=== PATIENT | female | born 1990 | race African-American/Black ===

== ENCOUNTER 2016-05-26 14:37 | Emergency (ER) | payer MEDICAID, OTHER ==
[2016-05-26 14:42] VITALS: BP 136/71
--- NOTE | 2016-05-26 15:25 | ED ---
Throat Pain/Nasal Congestion - HPI Summary HPI Summary: Pt here w/ URI sx x "a few days". Started as head congestion - she now has a ST , dry cough, PND. Denies fever, chills, N/V/D, otalgia, rash. Sick contacts - roommate. Pt smokes and is exposed to 2nd hand smoke. She has been taking ibuprofen for relief. Has to work today. - History of Current Complaint Chief Complaint: EDUpperRespComplaint Time Seen by Provider: 05/26/16 14:58 Hx Obtained From: Patient - Allergies/Home Medications Allergies/Adverse Reactions: Allergies Allergy/AdvReac Type Severity Reaction Status Date / Time No Known Allergies Allergy Verified 05/26/16 14:39 PMH/Surg Hx/FS Hx/Imm Hx Previously Healthy: Yes Endocrine/Hematology History: Denies: Hx Diabetes, Hx Thyroid Disease Cardiovascular History: Reports: Hx Cardiomegaly, Hx Hypertension Respiratory History: Denies: Hx Asthma, Hx Chronic Obstructive Pulmonary Disease (COPD) GI History: Denies: Hx Ulcer Infectious Disease History: No Infectious Disease History: Denies: Hx Clostridium Difficile, Hx Hepatitis, Hx Human Immunodeficiency Virus (HIV), Hx of Known/Suspected MRSA, Hx Shingles, Hx Tuberculosis, Hx Known/ Suspected VRE, Hx Known/Suspected VRSA, History Other Infectious Disease, Traveled Outside the [place] in Last 30 Days - Family History Known Family History: Positive: None, Other - mother and MGM "crippled up with arthritis, could hardly walk" - Social History Occupation: Employed Part-time Lives: With Family - roommate Alcohol Use: Occasionally Substance Use Type: Reports: Marijuana Substance Use Comment - Amount & Last Used: OCCASIONALLY Smoking Status (MU): Current Every Day Smoker Type: Cigarettes Amount Used/How Often: 5 PER DAY Review of Systems Negative: Fever, Chills Negative: Drainage, Erythema ENT: Other - see HPI Negative: Chest Pain Positive: Cough - see HPI. Negative: Shortness Of Breath Gastrointestinal: Negative Positive: no symptoms reported Musculoskeletal: Negative Skin: Negative Neurological: Negative Psychological: Normal All Other Systems Reviewed And Are Negative: Yes Physical Exam Triage Information Reviewed: Yes Vital Signs On Initial Exam: Initial Vitals Temp Pulse Resp BP Pulse Ox 98.8 F 79 18 136/71 100 05/26/16 14:39 05/26/16 14:39 05/26/16 14:39 05/26/16 14:39 05/26/16 14:39 Vital Signs Reviewed: Yes Appearance: Positive: Well-Appearing, No Pain Distress, Well-Nourished Skin: Positive: Warm, Dry - no rash Head/Face: Positive: Normal Head/Face Inspection - Sinuses w/ mild TTP Eyes: Positive: Normal, EOMI, Conjunctiva Clear ENT: Positive: Hearing grossly normal, Pharynx normal, Nasal congestion - mucosa w/ erythema and mild edema Lt > Rt, TMs normal. Negative: Nasal drainage , Tonsillar swelling, Tonsillar exudate Neck: Positive: Supple, Nontender, No Lymphadenopathy Respiratory/Lung Sounds: Positive: Clear to Auscultation, Breath Sounds Present. Negative: Rales, Rhonchi, Wheezes Cardiovascular: Positive: Normal, RRR, S1, S2. Negative: Murmur, Rub Abdomen Description: Positive: Nontender, No Organomegaly, Soft Bowel Sounds: Positive: Present Musculoskeletal: Positive: Normal, Strength/ROM Intact Neurological: Positive: Normal, Sensory/Motor Intact, Alert, Oriented to Person Place, Time, CN Intact II-III Psychiatric: Positive: Normal Diagnostics - Vital Signs Vital Signs Temp Pulse Resp BP Pulse Ox 05/26/16 14:39 98.8 F 79 18 136/71 100 - Laboratory Lab Statement: Any lab studies that have been ordered have been reviewed, and results considered in the medical decision making process. EENT Course/Dx - Diagnoses Provider Diagnoses: URI with cough and congestion Discharge - Discharge Plan Condition: Stable Disposition: HOME Patient Education Materials: Upper Respiratory Infection (ED) Forms: *Work Release Referrals: [facility] [Outside] Additional Instructions: Your respiratory infection is most likely viral in nature. This may last for 7- 14 days. There is no specific medication needed to treat this but some therapies may be implemented to aid your symptoms over the course of illness ( see below): Nasal wash (netti pot) & throat gargle 2 x day with 8 ounces of warm water + 1/ 4 teaspoon of salt Drink 60+ ounces of water daily Sleep 8+ hours per night Avoid Dairy and sugar Hot herbal/decaf tea with lemon & honey Chicken broth (preferably organic, free range chicken) Humidifier in house, but especially near bed at night Try a facial steam with or without eucalyptus essential oil Cough drops Vicks vapor rub Consider taking Vitamin D3 5,000iu and Vitamin C 1,000mg every day during illness Follow-up with your PCP if symptoms persist or worsen. You may also return to the ED.
== END 2016-05-26 15:51 | disposition home or self-care (01) ==
LOC: ED 14:37
DX: J06.9 Acute upper respiratory infection, unspecified (principal); R09.81 Nasal congestion; R05 Cough; F17.210 Nicotine dependence, cigarettes, uncomplicated
CPT/HCPCS: 99281

== ENCOUNTER 2016-06-20 08:25 | Emergency (ER) | payer MEDICAID, OTHER ==
[2016-06-20 08:30] VITALS: BP 133/86
--- NOTE | 2016-06-20 16:41 | ED ---
Dima Whitehead Adam, scribed for Nakul Paiz MD on 06/20/16 at 0851 . Upper Extremity Pain - HPI Summary HPI Summary: Pt is a 25 year old female presenting with finger swelling. She states that the index and pinky finger of her right hand have been intermittently swollen and itchy for several days. She has also developed small bumps on the affected fingers. This morning she woke up with the swelling, itchiness, and bumps and decided to come to the ED. She reports a hx of carpal tunnel in her right hand. 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 She denies any rashes on any other parts of her body. PMHx of HTN. - History of Current Complaint Chief Complaint: EDExtremityUpper Stated Complaint: 2 FINGERS SWELLING/PAINFUL Time Seen by Provider: 06/20/16 08:41 Hx Obtained From: Patient Mechanism Of Injury: Unknown Onset/Duration: Started Days Ago, Atraumatic, Still Present Timing: Intermittent Severity Initially: Moderate Severity Currently: Moderate Pain Location: Finger - Right index and pinky Aggravating Factor(s): Nothing Alleviating Factor(s): Nothing Associated Signs & Symptoms: Positive: Swelling, Other - Itchiness, small bumps - Allergies/Home Medications Allergies/Adverse Reactions: Allergies Allergy/AdvReac Type Severity Reaction Status Date / Time No Known Allergies Allergy Verified 06/20/16 08:27 PMH/Surg Hx/FS Hx/Imm Hx Endocrine/Hematology History: Denies: Hx Diabetes, Hx Thyroid Disease Cardiovascular History: Reports: Hx Cardiomegaly, Hx Hypertension Respiratory History: Denies: Hx Asthma, Hx Chronic Obstructive Pulmonary Disease (COPD) GI History: Denies: Hx Ulcer Infectious Disease History: No Infectious Disease History: Denies: Hx Clostridium Difficile, Hx Hepatitis, Hx Human Immunodeficiency Virus (HIV), Hx of Known/Suspected MRSA, Hx Shingles, Hx Tuberculosis, Hx Known/ Suspected VRE, Hx Known/Suspected VRSA, History Other Infectious Disease, Traveled Outside the [place] in Last 30 Days - Family History Known Family History: Positive: Other - Mother and MGM "crippled up with arthritis, could hardly walk" - Social History Occupation: Employed Full-time Lives: Alone Alcohol Use: Occasionally Hx Substance Use: Yes Substance Use Type: Reports: Marijuana Substance Use Comment - Amount & Last Used: OCCASIONALLY Hx Tobacco Use: Yes Smoking Status (MU): Current Every Day Smoker Type: Cigarettes Amount Used/How Often: 5 PER DAY Review of Systems Negative: Fever, Chills Negative: Erythema Negative: Sore Throat Negative: Chest Pain Negative: Shortness Of Breath, Cough Negative: Abdominal Pain, Vomiting, Nausea Negative: dysuria, hematuria Positive: Edema - Right index and pinky finger. Negative: Myalgia Positive: Other - Itchiness and small bumps on right index and pinky finger. Negative: Rash Neurological: Other - Negative dizziness All Other Systems Reviewed And Are Negative: Yes Physical Exam - Summary Physical Exam Summary: Constitutional: Well-developed, Well-nourished, Alert. (-) Distressed Skin: Warm, Dry HENT: Normocephalic; Atraumatic Eyes: Conjunctiva normal Neck: Musculoskeletal ROM normal neck. (-) JVD, (-) Stridor, (-) Tracheal deviation Cardio: Rhythm regular, rate normal, Heart sounds normal; Intact distal pulses; The pedal pulses are 2+ and symmetric. Radial pulses are 2+ and symmetric. (-) Murmur Pulmonary/Chest wall: Effort normal. (-) Respiratory distress, (-) Wheezes, (-) Rales Abd: Soft, (-) Tenderness, (-) Distension, (-) Guarding, (-) Rebound Musculoskeletal: Edema and small bumps on index and pinky fingers of right hand. Lymph: (-) Cervical adenopathy Neuro: Alert, Oriented x3 Psych: Mood and affect Normal Triage Information Reviewed: Yes Vital Signs On Initial Exam: Initial Vitals Temp Pulse Resp BP Pulse Ox 97.6 F 86 16 133/86 100 06/20/16 08:27 06/20/16 08:27 06/20/16 08:27 06/20/16 08:27 06/20/16 08:27 Vital Signs Reviewed: Yes Diagnostics - Vital Signs Vital Signs Temp Pulse Resp BP Pulse Ox 06/20/16 08:27 97.6 F 86 16 133/86 100 - Laboratory Lab Statement: Any lab studies that have been ordered have been reviewed, and results considered in the medical decision making process. Course/Dx - Diagnoses Provider Diagnoses: Eczema Discharge - Discharge Plan Condition: Stable Disposition: HOME Prescriptions: Hydrocortisone 1% CREAM* [Hytone Cream 1%*] 1 applic TOPICAL TID #1 tube Patient Education Materials: Eczema (ED) Forms: *Work Release Referrals: Joelle rCowell MD [Medical Doctor] - Additional Instructions: Follow up with Dr. Crowell in 2 days. The documentation as recorded by the Dima caruso Adam accurately reflects the service I personally performed and the decisions made by me, Nakul Paiz MD.
== END 2016-06-20 10:00 | disposition home or self-care (01) ==
LOC: ED 08:25
DX: L30.9 Dermatitis, unspecified (principal); M79.89 Other specified soft tissue disorders; F17.210 Nicotine dependence, cigarettes, uncomplicated
CPT/HCPCS: 99281

== ENCOUNTER 2016-07-21 12:34 | Emergency (ER) | payer OTHER ==
[2016-07-21 13:06] LABS: Urine Bilirubin Negative (Negative); Urine Glucose Negative (Negative); Urine Nitrite Negative (Negative)
[2016-07-21] MEDS ORDERED: Ondansetron INJ* 2 MG/ML VIAL IV ONE (13:19)
[2016-07-21 13:45] LABS: Hematocrit 41 % (35-47); Hemoglobin 13.3 g/dl (12.0-16.0); Mean Corpuscular HGB Conc 32 g/dl (31-36); Mean Corpuscular Hemoglobin 28 pg (27-31); Mean Corpuscular Volume 87 fL (80-97); Mean Platelet Volume 10 um3 (7.4-10.4); Red Blood Count 4.78 10^6/ul (4.0-5.4); Red Cell Distribution Width 15 % (10.5-15)
[2016-07-21] MEDS: NS 0.9% 1000 ML* 2,000 ML IV ONE ×2 (13:49→13:51)
[2016-07-21 14:00] LABS: ALT 14 U/L (7-52); AST 25 U/L (13-39); Albumin 4.2 g/dL (3.2-5.2); Alkaline Phosphatase 54 U/L (34-104); Anion Gap 6 mmol/L (2-11); BUN/Creatinine Ratio 9.1 (8-20); Blood Urea Nitrogen 8 mg/dL (6-24); CO2 Carbon Dioxide 25 mmol/L (22-32); Calcium 9.6 mg/dL (8.6-10.3); Chloride 103 mmol/L (101-111); EGFR African American 99.1 (>60); EGFR Non-African American 77.1 (>60); Globulin 3.6 g/dL (2-4); Glucose 88 mg/dL (70-100); Lipase 16 U/L (11.0-82.0); Potassium 3.4 mmol/L (3.5-5.0); Sodium 134 mmol/L (133-145); Total Protein 7.8 g/dL (6.4-8.9)
[2016-07-21] MEDS ORDERED: Iohexol 300* (CONTRAST) 10 ML SDV IV ONE (14:24)
--- NOTE | 2016-07-21 15:15 | RAD ---
INDICATION: 3 days diffuse abdominal pain. COMPARISON: June 04, 2013 CT chest. TECHNIQUE: Multidetector CT images were obtained from the lung bases to the ischial tuberosities with 100 mL Omnipaque 300 IV and oral contrast. Multiplanar reformation. REPORT: Unremarkable visualized inferior thorax. Unremarkable liver. Largely decompressed gallbladder limiting assessment without gross abnormality. Unremarkable pancreas and spleen. Negative for CT abnormality of the upper GI, small bowel, infra cecal appendix, colon. Enteric contrast extends to the splenic flexure. Physiologic small volume of free pelvic fluid. Negative for free air or hernias. Normal adrenal glands. Unremarkable kidneys with symmetric nephrograms and pyelograms. No abnormality along the course of the nondilated ureters. Unremarkable urinary bladder as well as the anteverted uterus and RIGHT adnexal region. 1.5 cm maximum dimension centrally hypodense LEFT ovarian lesion with some in were directed margins most consistent with an involuting follicular or hemorrhagic cyst. Negative for lymphadenopathy. Unremarkable dominant retroperitoneal vasculature. Negative for suspicious osseous lesions. IMPRESSION: 1. Normal appendix documented. 2. 1.5 cm LEFT ovarian lesion most consistent with an involuting follicular or hemorrhagic cyst given presence of some inward directed margins. 3. Physiologic small volume of free pelvic fluid.
[2016-07-21] MEDS ORDERED: Al Hydrox/Mg Hydrox/Simet LIQ* 30 ML UDC PO ONE (16:50)
[2016-07-21] MEDS ORDERED: Lidocaine 2% VISCOUS* 15 ML UDC PO ONE (16:50)
--- NOTE | 2016-07-21 17:27 | RAD ---
Indication: Epigastric upper abdominal pain. Comparison: CT abdomen of the same date. Technique: RIGHT upper quadrant ultrasound. Report: Appropriate direction flow documented in the portal and hepatic veins. 15.4 cm cephalocaudal liver is normal in echotexture and without evidence for focal lesions or intrahepatic biliary dilatation. Partially distended gallbladder with normal 2.2 mm wall. No visualized biliary sludge, cholelithiasis, or pericholecystic fluid. Negative for sonographic Lomax's sign. 4.3 mm common bile duct. Unremarkable pancreas. Negative for ascites. Unremarkable 11.1 cm RIGHT kidney. IMPRESSION: Negative RIGHT upper quadrant ultrasound.
[2016-07-21] MEDS ORDERED: Ondansetron ODT TAB* 4 MG PO ONE (18:52)
--- NOTE | 2016-07-21 18:55 | ED ---
Alexi Whitehead Erika, scribed for Asif Enriquez MD on 07/21/16 at 1352 . Abdominal Pain/Female - HPI Summary HPI Summary: Patient is a 25-year-old female presenting to the ED with a CC of diffuse abdominal pain. Patient reports she had left-sided abdominal pain intermittently for about a month. Today, pain worsened and became diffuse, so patient came to the ED. She currently rates pain a 7/10. Pain is somewhat aggravated by eating. Patient reports she was nauseated this morning, and has had some diarrhea. She also reports she has been lightheaded today. She denies blood in stool, burning with urination, and abnormal vaginal discharge. Pt states she is not concerned about an STI. LNMP 07/01/2016. Patient denies Hx abdominal surgeries. - History of Current Complaint Chief Complaint: EDAbdPain Stated Complaint: ABD PAIN, AND LUNG PAIN Time Seen by Provider: 07/21/16 12:49 Hx Obtained From: Patient Hx Last Menstrual Period: 04/01/15 Onset/Duration: Gradual Onset, Lasting Weeks - 1 month, Worse Since - today Timing: Intermittent Episode Lasting - minutes/hours Severity Initially: Mild Severity Currently: Moderate Pain Intensity: 8 Pain Scale Used: 0-10 Numeric Location: Diffuse Aggravating Factor(s): Food Alleviating Factor(s): Nothing Associated Signs and Symptoms: Positive: Nausea, Diarrhea, Other: - lightheadedness. Negative: Blood in Stool, Urinary Symptoms, Vaginal Discharge Allergies/Adverse Reactions: Allergies Allergy/AdvReac Type Severity Reaction Status Date / Time No Known Allergies Allergy Verified 06/20/16 08:27 PMH/Surg Hx/FS Hx/Imm Hx Endocrine/Hematology History: Denies: Hx Diabetes, Hx Thyroid Disease Cardiovascular History: Reports: Hx Cardiomegaly, Hx Hypertension Respiratory History: Denies: Hx Asthma, Hx Chronic Obstructive Pulmonary Disease (COPD) GI History: Denies: Hx Ulcer Infectious Disease History: Denies: Hx Clostridium Difficile, Hx Hepatitis, Hx Human Immunodeficiency Virus (HIV), Hx of Known/Suspected MRSA, Hx Shingles, Hx Tuberculosis, Hx Known/ Suspected VRE, Hx Known/Suspected VRSA, History Other Infectious Disease, Traveled Outside the [place] in Last 30 Days - Family History Known Family History: Positive: Other - arthritis - Social History Alcohol Use: Occasionally Hx Substance Use: Yes Substance Use Type: Reports: Marijuana Substance Use Comment - Amount & Last Used: OCCASIONALLY Hx Tobacco Use: Yes Smoking Status (MU): Current Every Day Smoker Type: Cigarettes Amount Used/How Often: 5 PER DAY Review of Systems Positive: Abdominal Pain, Diarrhea, Nausea Negative: burning, discharge Neurological: Other - lightheadedness All Other Systems Reviewed And Are Negative: Yes Physical Exam Triage Information Reviewed: Yes Vital Signs On Initial Exam: Initial Vitals Temp Pulse Resp BP Pulse Ox 97.3 F 80 16 130/79 100 07/21/16 12:38 07/21/16 12:38 07/21/16 12:38 07/21/16 12:38 07/21/16 12:38 Vital Signs Reviewed: Yes Appearance: Positive: Ill-Appearing - Mild, Pain Distress - Mild Skin: Positive: Warm, Skin Color Reflects Adequate Perfusion, Dry Head/Face: Positive: Normal Head/Face Inspection Eyes: Positive: EOMI, MAYA ENT: Positive: Normal ENT inspection, Other - Oral mucosa moist Neck: Positive: Supple, Nontender Respiratory/Lung Sounds: Positive: Clear to Auscultation, Breath Sounds Present Cardiovascular: Positive: RRR Abdomen Description: Positive: Soft, CVA Tenderness (L) - minimal, to percussion , Other: - Diffuse abdominal tenderness Bowel Sounds: Positive: Hypoactive Musculoskeletal: Positive: Normal, Strength/ROM Intact Neurological: Positive: Normal, Sensory/Motor Intact, Alert, Oriented to Person Place, Time Psychiatric: Positive: Affect/Mood Appropriate Diagnostics - Vital Signs Vital Signs Temp Pulse Resp BP Pulse Ox 07/21/16 12:38 97.3 F 80 16 130/79 100 - Laboratory Lab Results: Lab Results 07/21/16 Range/Units 13:00 Urine Color Straw Urine Appearance Clear Urine pH 6.0 (5-9) Ur Specific [place] 1.003 L (1.010-1.030) Urine Protein Negative (Negative) Urine Ketones Negative (Negative) Urine Blood Negative (Negative) Urine Nitrate Negative (Negative) Urine Bilirubin Negative (Negative) Urine Urobilinogen Negative (Negative) Ur Leukocyte Esterase Negative (Negative) Urine Glucose Negative (Negative) Result Diagrams: 07/21/16 13:25 07/21/16 13:25 Lab Statement: Any lab studies that have been ordered have been reviewed, and results considered in the medical decision making process. - CT CT A/P W/ CT Interpretation Completed By: Radiologist - IMPRESSION: 1. Normal appendix documented. 2. 1.5 cm LEFT ovarian lesion most consistent with an involuting follicular or hemorrhagic cyst given presence of some inward directed margins. 3. Physiologic small volume of free pelvic fluid. - Ultrasound No standard instances Ultrasound Interpretation Completed By: Radiologist - IMPRESSION: Negative RIGHT upper quadrant ultrasound. Re-Evaluation - Re-Evaluation First Eval Re-Evaluation Time: 16:36 Comment: Discussed results with patient. Will order US Gallbladder Abdominal Pain Fem Course/Dx - Course Course Of Treatment: NO CRITICAL CARE TIME. DISCUSSED RESULTS WITH PATIENT. SOME IMPROVEMENT IN ED. DISCHARGE HOME STABLE. - Diagnoses Provider Diagnoses: Abdominal pain, Ovarian cyst Discharge - Discharge Plan Condition: Stable Disposition: HOME Prescriptions: Omeprazole CAP* [Prilosec CAP* 20 MG] 20 mg PO BID #30 cap. Ondansetron ODT TAB* [Zofran 4 MG Odt TAB*] 4 mg PO Q6H PRN #10 tab.odt PRN Reason: Nausea Patient Education Materials: Abdominal Pain (ED), Ovarian Cyst (ED), Acute Diarrhea (ED) Referrals: No Primary Care Phys,NOPCP [Primary Care Provider] - Additional Instructions: FOLLOW UP WITH YOUR DOCTOR. RETURN TO THE EMERGENCY DEPARTMENT FOR ANY WORSENING OF YOUR CONDITION: PAIN, FEVER, YOU FEEL ILL OR QUESTIONS OR CONCERNS. The documentation as recorded by the Alexi caruso Erika accurately reflects the service I personally performed and the decisions made by me, Asif Enriquez MD.
[2016-07-21] MEDS ORDERED: Omeprazole CAP* 20 MG PO ONE (18:56)
[2016-07-21 19:15] VITALS: BP 134/91
== END 2016-07-21 19:00 | disposition home or self-care (01) ==
LOC: ED 12:34
DX: R10.9 Unspecified abdominal pain (principal); N83.209 Unspecified ovarian cyst, unspecified side; R11.0 Nausea; R19.7 Diarrhea, unspecified; R42 Dizziness and giddiness; F17.210 Nicotine dependence, cigarettes, uncomplicated
CPT/HCPCS: 36415; 74177; 76705; 80053; 81003; 83605; 83690; 84702; 85025; 86140; 96374; 99283; J2405; Q9967

== ENCOUNTER 2018-05-19 09:37 | Emergency (ER) | payer OTHER ==
[2018-05-19 11:26] LABS: Hematocrit 40 % (35-47); Mean Corpuscular HGB Conc 33 g/dl (31-36); Mean Corpuscular Hemoglobin 29 pg (27-31); Mean Corpuscular Volume 87 fL (80-97); Mean Platelet Volume 8.1 fL (7.4-10.4); Platelet Count 340 10^3/ul (150-450); Red Blood Count 4.56 10^6/ul (4.00-5.40); Red Cell Distribution Width 16 % (10.5-15); White Blood Count 9.9 10^3/ul (3.5-10.8)
[2018-05-19 11:43] LABS: C Reactive Protein 4.18 mg/L (<8.01); Uric Acid 6.1 mg/dL (2.3-6.6)
[2018-05-19] MEDS ORDERED: traMADol TAB* 50 MG PO ONE (11:49)
[2018-05-19] MEDS ORDERED: Ibuprofen TAB* 400 MG PO ONE (11:50)
--- NOTE | 2018-05-19 11:51 | ED ---
Lower Extremity - HPI Summary HPI Summary: Patient is a 27 y/o F presenting to ED with complaints of right knee pain and swelling with intermittent radiation of pain up and down the right leg. Sx have been intermittent for the past four months but notes recent exacerbation of pain. Patient is unsure if knee pain is a result of injury, noting that the only recent injury in her memory is when she had previously struck her knee on a metal [place], no recent falls reported. She states that staying in one position for too long exacerbates radiation of pain. She denies fevers, diaphoresis, chills, tick exposure. Erythema of eyes, sore throat, chest pain, SOB, cough, abdominal pain, vomiting , nausea, dysuria, hematuria, rash and dizziness are not reported. On triage, pain is rated 8/10, nothing is noted to aggravate/alleviate Sx. Home medications and allergies are reviewed. - History of Current Complaint Chief Complaint: EDExtremityLower Stated Complaint: RIGHT KNEE SWELLING Time Seen by Provider: 05/19/18 11:04 Hx Obtained From: Patient Hx Last Menstrual Period: 04/01/15 Mechanism Of Injury: Other - patient notes an episode of hitting her knee against a metal [place] Onset of Pain: Prior to Arrival Onset/Duration: Worse Since Severity Currently: Severe - 8/10 Pain Intensity: 8 Pain Scale Used: 0-10 Numeric - 8/10 Timing: Intermittent, Lasting Weeks - Sx have been present for past 4 months on and off Location: Is Discrete @ - right knee, intermittent radiation up and down leg Associated Signs And Symptoms: Positive: Swelling - right knee, Knee Pain, Other - Erythema of eyes, sore throat, chest pain, SOB, cough, abdominal pain, vomiting, nausea, dysuria, hematuria, rash and dizziness are not reported.. Negative: Fever, Dizziness, Abdominal Pain Aggravating Factor(s): Other - same position for too long Alleviating Factor(s): Nothing - Allergies/Home Medications Allergies/Adverse Reactions: Allergies Allergy/AdvReac Type Severity Reaction Status Date / Time No Known Allergies Allergy Verified 05/19/18 09:58 Home Medications: Home Medications Multivitamin [Multivitamins] 1 each PO DAILY 05/19/18 [History Confirmed ] NIFEdipine [Nifedipine ER] 30 mg PO DAILY 05/19/18 [History Confirmed 05/19/18] PMH/Surg Hx/FS Hx/Imm Hx Endocrine/Hematology History: Denies: Hx Diabetes, Hx Thyroid Disease Cardiovascular History: Reports: Hx Cardiomegaly, Hx Hypertension Respiratory History: Denies: Hx Asthma, Hx Chronic Obstructive Pulmonary Disease (COPD) GI History: Denies: Hx Ulcer Infectious Disease History: No Infectious Disease History: Denies: Hx Clostridium Difficile, Hx Hepatitis, Hx Human Immunodeficiency Virus (HIV), Hx of Known/Suspected MRSA, Hx Shingles, Hx Tuberculosis, Hx Known/ Suspected VRE, Hx Known/Suspected VRSA, History Other Infectious Disease, Traveled Outside the [place] in Last 30 Days - Family History Known Family History: Positive: Other - arthritis - Social History Alcohol Use: Weekly Hx Substance Use: Yes Substance Use Type: Reports: Marijuana Substance Use Comment - Amount & Last Used: OCCASIONALLY Hx Tobacco Use: Yes Smoking Status (MU): Light Every Day Tobacco Smoker Type: Cigarettes Amount Used/How Often: 5 PER DAY Review of Systems Constitutional: Other - NEGATIVE - TICK EXPOSURE Negative: Fever, Chills, Skin Diaphoresis Negative: Erythema Negative: Sore Throat Negative: Chest Pain Negative: Shortness Of Breath, Cough Negative: Abdominal Pain, Vomiting, Nausea Negative: dysuria, hematuria Musculoskeletal: Other - NEGATIVE - RECENT INJURIES, RECENT FALLS Positive: Myalgia - RIGHT KNEE, Edema - RIGHT KNEE Negative: Rash Neurological: Other - NEGATIVE - DIZZINESS All Other Systems Reviewed And Are Negative: Yes Physical Exam - Summary Physical Exam Summary: Constitutional: Well-developed, Well-nourished, Alert. (-) Distressed Skin: Warm, Dry HENT: Normocephalic; Atraumatic Eyes: Conjunctiva normal Neck: Musculoskeletal ROM normal neck. (-) JVD, (-) Stridor, (-) Tracheal deviation Cardio: Rhythm regular, rate normal, Heart sounds normal; Intact distal pulses; The pedal pulses are 2+ and symmetric. Radial pulses are 2+ and symmetric. (-) Murmur Pulmonary/Chest wall: Effort normal. (-) Respiratory distress, (-) Wheezes, (-) Rales Abd: Soft, (-) epigastric tenderness, (-) Distension, (-) Guarding, (-) Rebound Musculoskeletal: Pain with flexion of the right knee, perhaps mild effusion but not to touch, no bony tenderness (-) Edema Lymph: (-) Cervical adenopathy Neuro: Alert, Oriented x3 Psych: Mood and affect Normal Triage Information Reviewed: Yes Vital Signs On Initial Exam: Initial Vitals Temp Pulse Resp BP Pulse Ox 97.6 F 74 16 135/91 100 05/19/18 09:56 05/19/18 09:56 05/19/18 09:56 05/19/18 09:56 05/19/18 09:56 Vital Signs Reviewed: Yes Diagnostics - Vital Signs Vital Signs Temp Pulse Resp BP Pulse Ox 05/19/18 09:56 97.6 F 74 16 135/91 100 - Laboratory Lab Results: Lab Results 05/19/18 Range/Units 11:16 WBC 9.9 (3.5-10.8) 10^3/ul RBC 4.56 (4.00-5.40) 10^6/ul Hgb 13.0 (12.0-16.0) g/dl Hct 40 (35-47) % MCV 87 (80-97) fL MCH 29 (27-31) pg MCHC 33 (31-36) g/dl RDW 16 H (10.5-15) % Plt Count 340 (150-450) 10^3/ul MPV 8.1 (7.4-10.4) fL Result Diagrams: 05/19/18 11:16 Lab Statement: Any lab studies that have been ordered have been reviewed, and results considered in the medical decision making process. - Radiology right knee x-ray Radiology Interpretation Completed By: Radiologist Summary of Radiographic Findings: IMPRESSION: NO ACUTE OSSEOUS INJURY. IF SYMPTOMS PERSIST, RECOMMEND REPEAT IMAGING. THIS REPORT WAS REVIEWED BY ED PHYSICIAN. Lower Extremity Course/Dx - Course Course Of Treatment: Patient is a 27 y/o F presenting to ED with complaints of right knee pain and swelling with intermittent radiation of pain up and down the right leg. Sx have been intermittent for the past four months but notes recent exacerbation of pain. Patient is unsure if knee pain is a result of injury, noting that the only recent injury in her memory is when she had previously struck her knee on a metal [place], no recent falls reported. She states that staying in one position for too long exacerbates radiation of pain. She denies fevers, diaphoresis, chills, tick exposure. . On physical exam, pain with flexion at the knee, perhaps mild effusion but not to touch, no bony tenderness. Labs showed WBC 9.9, RDW 16, lactic acid 0.8, uric acid 6.1, CRP 4.18. During ED course, patient received tramadol 50 mg PO ONCE and Motrin 400 mg PO ONCE. RIGHT KNEE X-RAY IMPRESSION: NO ACUTE OSSEOUS INJURY. IF SYMPTOMS PERSIST, RECOMMEND REPEAT IMAGING. As sub-acute presentation, patient will be discharged to home with orthopedics follow up. - Diagnoses Provider Diagnoses: Right knee pain Discharge - Sign-Out/Discharge Documenting (check all that apply): Patient Departure - discharge Patient Received Moderate/Deep Sedation with Procedure: No - NO PROCEDURES DONE - Discharge Plan Condition: Stable Disposition: HOME Prescriptions: Ibuprofen TAB* [Motrin TAB* 400 MG] 400 mg PO Q6H PRN #20 tab PRN Reason: Pain Scale 6-10 traMADol TAB* [Ultram*] 50 mg PO Q6HR PRN #12 tab MDD 4 PRN Reason: Pain Scale 6-10 Patient Education Materials: Knee Pain (ED) Forms: *Work Release Referrals: Joelle Crowell MD [Primary Care Provider] - 3 Days Evert Fernandes MD [Medical Doctor] - 3 Days Additional Instructions: RETURN TO EMERGENCY DEPARTMENT WITH ANY NEW OR WORSENING SYMPTOMS. FOLLOW UP WITH PRIMARY CARE PHYSICIAN AND ORTHOPEDICS IN 2-3 DAYS. - Billing Disposition and Condition Condition: STABLE Disposition: Home - Attestation Statements Document Initiated by Regina: Yes Documenting Scribe: CHANA SALGADO Provider For Whom Regina is Documenting (Include Credential): JOVANY VILLEGAS MD Scribe Attestation: CHANA Whitehead , scribed for JOVANY VILLEGAS MD on 05/19/18 at 1847. Scribe Documentation Reviewed: Yes Provider Attestation: The documentation as recorded by the CHANA caruso accurately reflects the service I personally performed and the decisions made by me, JOVANY VILLEGAS MD Status of Scribe Document: Viewed
[2018-05-19 13:15] VITALS: BP 148/99
== END 2018-05-19 13:15 | disposition home or self-care (01) ==
LOC: ED 09:37
DX: M25.561 Pain in right knee (principal); F17.210 Nicotine dependence, cigarettes, uncomplicated
CPT/HCPCS: 36415; 83605; 84550; 85027; 86140; 99282; A9270-GY